=== PATIENT | male | born 1975 | race Caucasian/White ===

== ENCOUNTER 2022-10-02 08:11 | Day surgery (SDC) | payer OTHER, SELFPAY ==
--- NOTE | 2022-10-02 | PATH_ITS ---
[facility] Accession Number: [id number] . 01 Material submitted: . PART A: colon - RANDOM COLON BIOPSIES PART B: colon - ASCENDING COLON POLYP . 01 Diagnosis: A. Random Colon, Biopsies: Colonic mucosa with no diagnostic abnormality. Negative for active, chronic, and microscopic colitis. Negative for dysplasia and malignancy. . B. Ascending Colon, Polyp, Biopsy: Tubular adenoma. MRV 10/04/2022 1522 Local . 01 Electronically signed: . Perri Hodgson MD, Pathologist NPI- [id number] . 01 Gross description: . Part A: RANDOM COLON BIOPSIES: Received in formalin are 3 fragment(s) of dut[place], soft tissue measuring 0.5 x 0.1 x 0.1 cm to 0.2 x 0.1 x 0.1 cm submitted entirely in 1 cassette(s) Part B: ASCENDING COLON POLYP: Received in formalin is 1 fragment(s) of dut[place], soft tissue measuring 0.2 x 0.1 x 0.1 cm submitted entirely in 1 cassette(s) /CPE 10/03/2022 0913 Local . 01 Pathologist provided ICD-10: D12.2 . 01 CPT . 401476, 521163 Specimen Comment: A courtesy copy of this report has been sent to [phone] Performed at: 01 [facility] Cytology [address] [place] [address], [place], [place] [id number] MD Holger Serrano MD Phone: [phone]
[2022-10-02 08:38] VITALS: BP 158/96; PULSE 94; RESP 16; TEMP 36.9; O2SAT 97; BMI 49.5
[2022-10-02] MEDS: LACTATED RINGERS 1,000 ML 42 ML IV (08:46)
--- NOTE | 2022-10-02 09:28 | PM.HP.1 ---
History of Present Illness History of Present Illness Date Patient Seen: 10/02/22 Time Patient Seen: 09:29 Chief complaint: SDC Narrative: I reviewed the recent office note. There is a family history of colon cancer and a personal history of diarrhea. Patient History Family & Social History Social History: household members spouse Tobacco & Substance use: Smoking Status Never smoker alcohol intake never Substance Use Type does not use Meds Home Medications and Allergies Home Medications Medication Instructions Recorded Confirmed Type amlodipine 10 mg tablet 10 mg PO DAILY 06/20/22 10/02/22 History atorvastatin 80 mg tablet 80 mg PO DAILY 06/20/22 10/02/22 History ezetimibe [Zetia] 145 mg PO DAILY 06/20/22 10/02/22 History hydrochlorothiazide 25 mg tablet 25 mg PO DAILY 06/20/22 10/02/22 History metoprolol tartrate 50 mg tablet 50 mg PO DAILY 06/20/22 10/02/22 History valsartan 320 mg tablet 320 mg PO DAILY 06/20/22 10/02/22 History Allergies Allergy/AdvReac Type Severity Reaction Status Date / Time oxycodone AdvReac Unknown Verified 10/02/22 08:32 Review of Systems Review of Systems ROS: Yes All systems reviewed with the patient and are negative except as otherwise documented Exam Vital Signs (past 8 hours): - 10/02/22 08:38 Temperature 98.4 F Pulse Rate 94 H Respiratory Rate 16 Blood Pressure 158/96 H Pulse Oximetry 97 Oxygen Delivery Method Room Air Oxygen Delivery Method Room Air Const General: cooperative HENMT Head: normal to inspection Eyes General: appearance normal, both eyes and all related structures Neck Neck: normal visual inspection Chest Chest: normal inspection of the chest Resp Effort & Inspection: normal respiratory effort Cardio Rate: regular rate GI Inspection: normal to inspection Skin General: no rashes or lesions noted Neuro General: patient alert and patient awake Extrem General: normal to inspection and no pedal edema Psych Appearance: grossly normal Assessment & Plan Assessment & Plan narrative: 47-year-old male with a family history of colon cancer and a chronic history of diarrhea. Colonoscopy is pursued today. Time Spent With Patient Critical Care time: I spent a total of [] minutes of critical care time on this patient's care today; this time is exclusive of procedural time.
--- NOTE | 2022-10-02 09:29 | PM.PREOP ---
Pre-operative Note Interval Note History & Physical reviewed/Exam performed by Physician: Yes Changes to H&P: No ASA Class (for procedural sedation): III
--- NOTE | 2022-10-02 09:54 | P.OP.COLON_ITS ---
Operative Date/Time/Diagnoses Date of procedure: 10/02/22 Time of procedure: 09:55 Pre-op diagnosis: Family history of colon cancer personal history of diarrhea Post-op diagnosis: same Procedure & Clinicians Study performed: Colonoscopy with biopsies and a cold forceps polypectomy Same procedure as scheduled: Yes Indications: Family history of colon cancer personal history of diarrhea Surgeon: Rajinder oMntano Procedure Notes SCOAP/Timeout: Done Procedure in detail: After the risks and benefits were explained, written and verbal informed consent was obtained. The patient was brought into the procedure room and placed into the left lateral decubitus position. Please see anesthesia notes for sedation details. Digital rectal examination was accomplished. The scope was introduced into the patient and advanced under direct visualization to the cecum as identified by the appendiceal orifice and ileocecal valve. The scope was slowly withdrawn to carefully examine the mucosa for any defects or lesions. Compreh ensive imaging was accomplished throughout the rectum including the dentate line. The colon was decompressed, the scope was then removed from the patient who tolerated the procedure well. Adult colonoscope Bowel prep adequate Scope withdrawal time: 12 minutes Sedation minutes: 19 Complications: none Impression: There was no evidence of macroscopic colitis. Random colon biopsies were taken for exclusion of microscopic colitis. There was a diminutive polyp removed with cold forceps from the ascending colon. The terminal ileum appeared visually within normal limits. Patient had grade 2 hemorrhoids. Endoscopic diagnosis 1. Small polyp 2. Grade 2 hemorrhoids Post-procedure Plan for aftercare: 1. Await histopathology 2. Repeat colonoscopy 5 years. Disposition: PACU
[2022-10-02 09:58] VITALS: BP 99/65; PULSE 85; RESP 12; TEMP 36.6; O2SAT 94
[2022-10-02 10:02] VITALS: BP 101/65; PULSE 77; RESP 14; O2SAT 97
[2022-10-02 10:06] VITALS: BP 99/62; PULSE 77; RESP 12; TEMP 36.6; O2SAT 96
== END 2022-10-02 10:19 | disposition home or self-care (01) ==
PROVIDERS: PCP Physician Assistant; Referring Provider Internal Medicine Gastroenterology; Visit Provider Internal Medicine Gastroenterology
PROC: 0DJD8ZZ Inspection of Lower Intestinal Tract, Via Natural or Artificial Opening Endoscopic (ICD-10-PCS; CPT 45378; principal; 2022-10-02 09:30)
DX: R19.7 Diarrhea, unspecified (principal); Z80.0 Family history of malignant neoplasm of digestive organs; Z86.010 Personal history of colon polyps; D12.2 Benign neoplasm of ascending colon
CPT/HCPCS: 45380; J2704; J3010